=== PATIENT | female | born 1985 | race Caucasian/White ===

== ENCOUNTER 2016-07-02 10:15 | Emergency (ER) | payer OTHER, SELFPAY ==
[2016-07-02] MEDS ORDERED: KETOROLAC 30 MG/ML VIAL (J1885) As Ordered ONE (11:34)
[2016-07-02] MEDS ORDERED: ONDANSETRON 4MG/2ML VIAL (J2405) As Ordered ONE (11:34)
[2016-07-02 11:48] LABS: BASO % 0.5 % (0.0-1.0); EOS # 0.3 K/mm3 (0.0-0.50); EOS % 4.2 % (0.0-3.0); LARGE UNSTAINED CELL # 0.1 K/mm3 (0.0-0.4); LARGE UNSTAINED CELL % 1.7 % (0.0-4.0); LYMPH # 2.2 K/mm3 (1.5-6.5); MEAN CORPUSCULAR HEMOGLOBIN 29.7 pg (27.0-33.0); MEAN CORPUSCULAR HGB CONC 34.4 g/dl (32.0-36.5); MEAN CORPUSCULAR VOLUME 86.5 fl (80.0-96.0); MONO # 0.3 K/mm3 (0.0-0.8); MONO % 3.7 % (0.0-5.0); NEUTROPHILS # 4.6 K/mm3 (1.8-7.7); NEUTROPHILS % 60.9 % (36.0-66.0); PLATELET COUNT, AUTOMATED 227 k/mm3 (150-450); RED CELL DISTRIBUTION WIDTH 12.5 % (11.5-14.5); WHITE BLOOD COUNT 7.5 K/mm3 (4.0-10.0)
--- NOTE | 2016-07-02 12:36 | REP ---
Clinical: Left flank pain. Comparison: 03/03/2016. Findings: Liver, spleen, pancreas, gallbladder, bilateral adrenal glands and kidneys are normal for noncontrast examination. No perinephric stranding, hydroureteronephrosis, intrarenal or obstructing ureteral calculi are identified. The enteric system is without obstruction or acute inflammatory process and a normal terminal ileum and appendix are identified in the right lower quadrant. Pelvis demonstrates collapsed normal bladder and age-appropriate uterus/adnexa. No pelvic fluid or ascites. No obvious adenopathy. Vasculature normal. Musculoskeletal structures are unremarkable. Lung bases clear. Impression: Normal noncontrast CT of the abdomen and pelvis. Signed by Aneesh Loving MD 07/02/2016 12:27 P
[2016-07-02 13:09] LABS: ALBUMIN 3.5 GM/DL (3.2-5.2); ALBUMIN/GLOBULIN RATIO 0.92 (1.00-1.93); ALKALINE PHOSPHATASE 103 U/L (45-117); ALT/SGPT 38 U/L (12-78); ANION GAP 6 MEQ/L (8-16); AST/SGOT 22 U/L (15-37); BILIRUBIN,DIRECT 0.2 MG/DL (0.0-0.2); BILIRUBIN,TOTAL 0.9 MG/DL (0.2-1.0); BLOOD UREA NITROGEN 7 MG/DL (7-18); CALCIUM LEVEL 8.9 MG/DL (8.5-10.1); CARBON DIOXIDE LEVEL 29 MEQ/L (21-32); CHLORIDE LEVEL 104 MEQ/L (98-107); CREATININE FOR GFR 0.52 MG/DL (0.55-1.02); GLOMERULAR FILTRATION RATE > 60.0 (>60); GLUCOSE, FASTING 72 MG/DL (70-105); SODIUM LEVEL 139 MEQ/L (136-145); TOTAL PROTEIN 7.3 GM/DL (6.4-8.2)
[2016-07-02] MEDS ORDERED: NITROFURANTOIN (MACROBID) 100 MG CAP As Ordered ONE (13:45)
--- NOTE | 2016-07-02 13:52 | EDDOCDS ---
Nurse's Notes [facility] Name: Lisa Xiao Age: 30 yrs Sex: Female : 1985 Arrival Date: 07/02/2016 Time: 10:15 Bed I4 / M4 Private MD: Janet Zhao D Diagnosis: Urinary tract infection, site not specified;Nausea with vomiting, unspecified;Lower abdominal pain, unspecified-llq Presentation: 07/02 10:25 Presenting complaint: Patient states: she has had back pain for 2 days and since last kcs night has had left flank pain - vomited today. Adult Sepsis Screening: The patient does not have new or worsening altered mentation. Patient's respiratory rate is less than 22. Systolic blood pressure is greater than 100. Patient has a qSOFA score of 0- Negative Sepsis Screen. Suicide/Homicide risk assessment- the patient denies having any suicidal and/or homicidal ideations and does not present with any other emotional, behavioral or mental health complaints. Status: Patient is not a volunteer services manager or dependent. Transition of care: patient was not received from another setting of care. 10:25 Acuity: LIVIER Level 3 kcs 10:25 Method Of Arrival: Walkin/Carried/Asstd kcs Triage Assessment: 10:27 General: Appears obese, uncomfortable, well developed, well nourished, well groomed, kcs Behavior is cooperative, flat. Pain: Location: left flank Pain currently is 8 out of 10 on a pain scale. HIV screening NA for this visit Offered previously. Neurological: Level of Consciousness is awake, alert. Respiratory: Airway is patent Respiratory effort is even, unlabored, Respiratory pattern is regular, symmetrical. : Denies inability to void, hematuria. Derm: Skin is intact, is healthy with good turgor, Skin is dry, Skin is normal. 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 Zoloft 100 mg Oral tab 2 tabs once daily 2. omeprazole 40 mg Oral cpDR 1 cap once daily 3. trazodone 50 mg Oral tab HS - PMHx: Anxiety; Depression; GERD; Hypothyroidism; Migraine Headaches; - PSHx: none; - Social history: Smoking status: Patient uses tobacco products, light tobacco smoker. No barriers to communication noted, The patient speaks fluent Ethiopian. - Family history: Not pertinent. - : The pt / caregiver states he / she is not on anticoagulants. Home medication list is obtained from the patient, [employer] import data. - Exposure Risk Screening:: None identified. Screenin:42 Screening information is obtained from the patient. Fall risk: No risks identified. kr3 Assistance ADL's: requires no assistance with activities of daily living. Abuse/DV Screen: The patient / caregiver reports he/she is: not in a situation that causes fear, pain or injury. Nutritional screening: No deficits noted. Advance Directives: Currently, there is no health care proxy. home support is adequate. Assessment: 11:41 General: Appears in no apparent distress. Pain: Location: posterior aspect of left kr3 lateral abdomen and left lower quadrant Pain currently is 8 out of 10 on a pain scale. Neurological: No deficits noted. Respiratory: Respiratory effort is even, unlabored. GI: Abdomen is obese, Abd is tender to palpation in left lower quadrant Reports lower abdominal pain, nausea. : Denies burning with urination, urinary frequency, urgency. Derm: Skin is normal. 12:24 Reassessment: Patient states feeling better. pain and nausea are decreased. kr3 13:50 Reassessment: Patient appears in no apparent distress at this time. Neurological: No kr3 deficits noted. Respiratory: Respiratory effort is even, unlabored. Derm: Skin is normal. Vital Signs: 10:17 BP 100 / 87; Pulse 84; Resp 18; Temp 98.2(O); Pulse Ox 98% ; Weight 120.66 kg (M); cmb Height 5 ft. 2 in. (157.48 cm); Pain 8/10; 12:24 Pain 5/10; kr3 13:16 BP 123 / 81; Pulse 66; Resp 18; Temp 97.1; Pulse Ox 98% ; Pain 5/10; jam1 10:17 Body Mass Index 48.65 (120.66 kg, 157.48 cm) cmb Vitals: 10:17 Log In Time: July 02, 2016 at 10:14. cmb ED Course: 10:16 Patient visited by Harleen Young. cmb 10:16 Patient moved to Waiting cmb 10:17 Janet Zhao is Private Physician. cmb 10:18 Patient moved to Pre RCE cmb 10:26 Triage Initiated kcs 10:29 Patient moved to Triage 2 kcs 11:11 [facility] dt4 11:11 Juan Carlos Beth MD is Attending Physician. dt4 11:11 Patient visited by Mojgan James PA-C. dt4 11:28 Patient moved to I4 / M4 jam1 11:41 Basic Metabolic Profile Sent. dsf 11:41 CBC with Diff Sent. dsf 11:41 Lipase Sent. dsf 11:41 Liver Profile Sent. dsf 11:41 Urinalysis Sent. dsf 11:42 The patient / caregiver is instructed regarding the plan of care and ED course. Patient kr3 has correct armband on for positive identification. Placed in gown. Bed in low position. Call light in reach. Side rails up X 1. 11:42 Urine Culture Sent. dsf 11:42 Inserted saline lock: 22 gauge in right hand The patient tolerated the procedure well. kr3 11:44 Patient visited by Laurie Meyers RN. kr3 12:09 [facility] Payment Agreement was scanned into [employer] and attached to record. lg 12:24 Patient visited by Laurie Meyers RN. kr3 13:02 CT ABD & PELVIS: No Contrast Returned. EDMS 13:42 Fredy Palomino is Referral Physician. dt4 13:49 Discontinued lock intact, bleeding controlled, pressure dressing applied, No kr3 redness/swelling at site. No procedures done that require assistance. Administered Medications: 11:42 Drug: Ondansetron 4 mg [ondansetron HCl 2 mg/mL intravenous solution (2 mL)] Route: dsf IVP; Site: left hand; 12:24 Follow up: Response: Nausea is decreased kr3 11:42 Drug: ketorolac 30 mg [ketorolac 30 mg/mL (1 mL) injection solution (1 mL)] Route: IVP; dsf Site: left hand; 12:24 Follow up: Pain 5/10 Adult; Response: Pain is decreased kr3 13:49 Drug: Nitrofurantoin 100 mg Route: PO; kr3 13:51 Follow up: Response: Pt left department before re-evaluation is appropriate kr3 Order Results: Lab Order: Basic Metabolic Profile; SPEC'M 07/02/16 12:38 Test: GLUCOSE, FASTING; Value: 72; Range: 70-105; Units: MG/DL; Status: F Test: BLOOD UREA NITROGEN; Value: 7; Range: 7-18; Units: MG/DL; Status: F Test: CREATININE FOR GFR; Value: 0.52; Range: 0.55-1.02; Abnormal: Below low normal; Units: MG/DL; Status: F Test: GLOMERULAR FILTRATION RATE; Value: > 60.0; Range: >60; Status: F Test: SODIUM LEVEL; Value: 139; Range: 136-145; Units: MEQ/L; Status: F Test: POTASSIUM SERUM; Value: 4.0; Range: 3.5-5.1; Units: MEQ/L; Status: F Test: CHLORIDE LEVEL; Value: 104; Range: 98-107; Units: MEQ/L; Status: F Test: CARBON DIOXIDE LEVEL; Value: 29; Range: 21-32; Units: MEQ/L; Status: F Test: ANION GAP; Value: 6; Range: 8-16; Abnormal: Below low normal; Units: MEQ/L; Status: F Test: CALCIUM LEVEL; Value: 8.9; Range: 8.5-10.1; Units: MG/DL; Status: F Test Note: ; Units are mL/min/1.73 m2 Chronic Kidney Disease Staging per NKF: Stage I & II GFR >=60 Normal to Mildly Decreased Stage III GFR 30-59 Moderately Decreased Stage IV GFR 15-29 Severely Decreased Stage V GFR <15 Very Little GFR Left ESRD GFR <15 on [place] SMOOTHER Lab Order: CBC with Diff; SPEC'M 07/02/16 11:39 Test: WHITE BLOOD COUNT; Value: 7.5; Range: 4.0-10.0; Units: K/mm3; Status: F Test: RED BLOOD COUNT; Value: 5.13; Range: 4.00-5.40; Units: M/mm3; Status: F Test: HEMOGLOBIN; Value: 15.3; Range: 12.0-16.0; Units: g/dl; Status: F Test: HEMATOCRIT; Value: 44.4; Range: 36.0-47.0; Units: %; Status: F Test: MEAN CORPUSCULAR VOLUME; Value: 86.5; Range: 80.0-96.0; Units: fl; Status: F Test: MEAN CORPUSCULAR HEMOGLOBIN; Value: 29.7; Range: 27.0-33.0; Units: pg; Status: F Test: MEAN CORPUSCULAR HGB CONC; Value: 34.4; Range: 32.0-36.5; Units: g/dl; Status: F Test: RED CELL DISTRIBUTION WIDTH; Value: 12.5; Range: 11.5-14.5; Units: %; Status: F Test: PLATELET COUNT, AUTOMATED; Value: 227; Range: 150-450; Units: k/mm3; Status: F Test: NEUTROPHILS %; Value: 60.9; Range: 36.0-66.0; Units: %; Status: F Test: LYMPH %; Value: 29.0; Range: 24.0-44.0; Units: %; Status: F Test: MONO %; Value: 3.7; Range: 0.0-5.0; Units: %; Status: F Test: EOS %; Value: 4.2; Range: 0.0-3.0; Abnormal: Above high normal; Units: %; Status: F Test: BASO %; Value: 0.5; Range: 0.0-1.0; Units: %; Status: F Test: LARGE UNSTAINED CELL %; Value: 1.7; Range: 0.0-4.0; Units: %; Status: F Test: NEUTROPHILS #; Value: 4.6; Range: 1.8-7.7; Units: K/mm3; Status: F Test: LYMPH #; Value: 2.2; Range: 1.5-6.5; Units: K/mm3; Status: F Test: MONO #; Value: 0.3; Range: 0.0-0.8; Units: K/mm3; Status: F Test: EOS #; Value: 0.3; Range: 0.0-0.50; Units: K/mm3; Status: F Test: BASO #; Value: 0.0; Range: 0.0-0.2; Units: K/mm3; Status: F Test: LARGE UNSTAINED CELL #; Value: 0.1; Range: 0.0-0.4; Units: K/mm3; Status: F Lab Order: Lipase; SPEC'M 07/02/16 12:38 Test: LIPASE; Value: 93; Range: 73-393; Units: U/L; Status: F Lab Order: Liver Profile; SPEC'M 07/02/16 12:38 Test: AST/SGOT; Value: 22; Range: 15-37; Units: U/L; Status: F Test: ALT/SGPT; Value: 38; Range: 12-78; Units: U/L; Status: F Test: ALKALINE PHOSPHATASE; Value: 103; Range: 45-117; Units: U/L; Status: F Test: BILIRUBIN,TOTAL; Value: 0.9; Range: 0.2-1.0; Units: MG/DL; Status: F Test: BILIRUBIN,DIRECT; Value: 0.2; Range: 0.0-0.2; Units: MG/DL; Status: F Test: TOTAL PROTEIN; Value: 7.3; Range: 6.4-8.2; Units: GM/DL; Status: F Test: ALBUMIN; Value: 3.5; Range: 3.2-5.2; Units: GM/DL; Status: F Test: ALBUMIN/GLOBULIN RATIO; Value: 0.92; Range: 1.00-1.93; Abnormal: Below low normal; Status: F Lab Order: Urinalysis; SPEC'M 07/02/16 11:39 Test: APPEARANCE, URINE; Value: CLOUDY; Range: CLEAR; Abnormal: Above high normal; Status: F Test: COLOR, URINE; Value: ROSITA; Range: YELLOW; Status: F Test: PH,URINE; Value: 7.0; Range: 5.0-9.0; Units: UNITS; Status: F Test: SPECIFIC GRAVITY URINE AUTO; Value: 1.026; Range: 1.002-1.035; Status: F Test: PROTEIN, URINE AUTO; Value: 1+; Range: NEGATIVE; Abnormal: Above high normal; Units: mg/dL; Status: F Test: GLUCOSE, URINE (UA) AUTO; Value: NEGATIVE; Range: NEGATIVE; Units: mg/dL; Status: F Test: KETONE, URINE AUTO; Value: NEGATIVE; Range: NEGATIVE; Units: mg/dL; Status: F Test: UROBILINOGEN, URINE AUTO; Value: 2.0; Range: 0.0-2.0; Abnormal: Above high normal; Units: mg/dL; Status: F Test: BILIRUBIN, URINE AUTO; Value: NEGATIVE; Range: NEGATIVE; Status: F Test: NITRITE, URINE AUTO; Value: NEGATIVE; Range: NEGATIVE; Status: F Test: LEUKOCYTE ESTERASE, URINE AUTO; Value: 2+; Range: NEGATIVE; Abnormal: Above high normal; Status: F Test: BLOOD, URINE BLOOD; Value: 2+; Range: NEGATIVE; Abnormal: Above high normal; Status: F Test: WBC, URINE AUTO; Value: 9; Range: 0-3; Abnormal: Above high normal; Units: /HPF; Status: F Test: RBC, URINE AUTO; Value: 7; Range: 0-3; Abnormal: Above high normal; Units: /HPF; Status: F Test: BACTERIA, URINE AUTO; Value: 2+; Range: NEGATIVE; Abnormal: Above high normal; Status: F Test: SQUAMOUS EPITHELIAL CELL UR AU; Value: 7; Range: 0-6; Units: /HPF; Status: F Test: MUCUS, URINE; Value: LARGE; Range: NEGATIVE; Status: F Test: HYALINE CAST, URINE AUTO; Value: 0; Range: 0-1; Units: /LPF; Status: F Radiology Order: CT ABD & PELVIS: No Contrast Test: CT ABD & PELVIS: No Contrast REASON FOR EXAMINATION: left flank pain; Clinical: Left flank pain.; ; Comparison: 03/03/2016.; ; Findings:; Liver, spleen, pancreas, gallbladder, bilateral adrenal glands and kidneys are; normal for noncontrast examination. No perinephric stranding,; hydroureteronephrosis, intrarenal or obstructing ureteral calculi are identified.; The enteric system is without obstruction or acute inflammatory process and a; normal terminal ileum and appendix are identified in the right lower quadrant.; Pelvis demonstrates collapsed normal bladder and age-appropriate uterus/adnexa.; No pelvic fluid or ascites. No obvious adenopathy. Vasculature normal.; Musculoskeletal structures are unremarkable. Lung bases clear.; ; Impression:; Normal noncontrast CT of the abdomen and pelvis.; ; ; Signed by; Aneesh Loving MD 07/02/2016 12:27 P; Outcome: 12:25 CT Study completed. kr3 13:38 Discharge ordered by Provider. dt4 13:50 Discharge Assessment: patient administered narcotics - no. The following High Risk kr3 Discharge criteria are identified: None. Discharged to home ambulatory. Condition: stable. Discharge instructions given to patient, Instructed on discharge instructions, follow up and referral plans. medication usage, Demonstrated understanding of instructions, medications, Pt was receptive of discharge instructions/ teaching. Prescriptions given X 3. Property sent home with patient. 13:51 Patient left the ED. kr3 Signatures: Dispatcher [employer] EDMS Roslyn Lopes, RN RN Natty Campbell, COGNOS ADMINISTRATOR COGNOS ADMINISTRATOR jam1 Kathya Ramirez, Reg Reg lg Laurie Meyers RN RN kr3 Charla Martinez,RN RN Harleen Zheng Diane, PA-C PA-C dt4 MTDD
--- NOTE | 2016-07-02 13:52 | EDDOCDS ---
Physician Documentation [facility] Name: Lisa Xiao Age: 30 yrs Sex: Female : 1985 Arrival Date: 07/02/2016 Time: 10:15 Bed I4 / M4 Private MD: Janet Zhao D Disposition: 07/02/16 13:38 Discharged to Home/Self Care. Impression: Urinary tract infection, site not specified, Nausea with vomiting, unspecified, Lower abdominal pain, unspecified - llq. - Condition is Stable. - Discharge Instructions: Nausea and Vomiting, Urinary Tract Infection. - Prescriptions for Macrobid 100 mg Oral Capsule - take 100 milligrams by ORAL route every 12 hours for 7 days; 14 capsule. ZOFRAN ODT 4 mg Oral - dissolve 1 tablet by ORAL route 3-4 times daily As needed do not chew, do not swallow whole; 10 tablet. Ultram 50 mg Oral Tablet - take 1 tablet by ORAL route every 6 hours As needed MDD: 4 tabs; 12 tablet. - Medication Reconciliation, Local Pharmacy Hours form. - Follow up: Emergency Department; When: As needed; Reason: Worsening of conditions. Follow up: Private Physician; When: 2 - 3 days; Reason: Wound/Symptom Recheck, Recheck today's complaints, Continuance of care. Follow up: Fredy Palomino; When: Call to arrange an appointment; Reason: Wound/Symptom Recheck, Further diagnostic work-up, Recheck today's complaints, Continuance of care, To establish care. - Problem is new. - Symptoms are unchanged. Historical: - Allergies: SULFA (SULFONAMIDES) (Anaphylaxis); - Home Meds: 1. Zoloft 100 mg Oral tab 2 tabs once daily 2. omeprazole 40 mg Oral cpDR 1 cap once daily 3. trazodone 50 mg Oral tab HS - PMHx: Anxiety; Depression; GERD; Hypothyroidism; Migraine Headaches; - PSHx: none; - Social history: Smoking status: Patient uses tobacco products, light tobacco smoker. No barriers to communication noted, The patient speaks fluent Faroese. - Family history: Not pertinent. - : The pt / caregiver states he / she is not on anticoagulants. Home medication list is obtained from the patient, IND [employer] import data. - Exposure Risk Screening:: None identified. 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 2 in. (157.48 cm); Pain 8/10; 12:24 Pain 5/10; kr3 13:16 BP 123 / 81; Pulse 66; Resp 18; Temp 97.1; Pulse Ox 98% ; Pain 5/10; jam1 10:17 Body Mass Index 48.65 (120.66 kg, 157.48 cm) cmb MDM: 11:15 Financial registration complete. lg 11:28 Ondansetron 4 mg IVP once ordered. dt4 11:28 ketorolac 30 mg IVP once ordered. dt4 11:28 IV Saline Lock ordered. dt4 11:28 Undress patient appropriately for examination ordered. dt4 11:29 Basic Metabolic Profile Ordered. EDMS 11:29 CBC with Diff Ordered. EDMS 11:29 Lipase Ordered. EDMS 11:29 Liver Profile Ordered. EDMS 11:29 Urinalysis Ordered. EDMS 11:29 Urine Culture Ordered. EDMS 11:29 CT ABD & PELVIS: No Contrast Ordered. EDMS 11:29 NOTHING BY MOUTH+DIET ordered. EDMS 12:09 [facility] Payment Agreement was scanned into [employer] and attached to record. lg 13:35 Nitrofurantoin 100 mg PO once ordered. dt4 Administered Medications: 11:42 Drug: Ondansetron 4 mg [ondansetron HCl 2 mg/mL intravenous solution (2 mL)] Route: dsf IVP; Site: left hand; 12:24 Follow up: Response: Nausea is decreased kr3 11:42 Drug: ketorolac 30 mg [ketorolac 30 mg/mL (1 mL) injection solution (1 mL)] Route: IVP; dsf Site: left hand; 12:24 Follow up: Pain 5/10 Adult; Response: Pain is decreased kr3 13:49 Drug: Nitrofurantoin 100 mg Route: PO; kr3 13:51 Follow up: Response: Pt left department before re-evaluation is appropriate kr3 Signatures: Dispatcher [employer] EDMS Roslyn Lopes RN RN kcs Ganter, LorCarl Perry lg, Kathleen,RN RN kr3 Mojgan James PA-C PA-C dt4 Charla Martinez RNf The chart was reviewed and I authenticate all verbal orders and agree with the evaluation and treatment provided.Attachments: 12: [facility] Payment Agreement lg MTDD
--- NOTE | 2016-07-04 14:52 | EDDOCDS ---
Physician Documentation [facility] Name: Lisa Xiao Age: 30 yrs Sex: Female : 1985 Arrival Date: 07/02/2016 Time: 10:15 Bed I4 / M4 Private MD: Janet Zhao D Disposition: 07/02/16 13:38 Discharged to Home/Self Care. Impression: Urinary tract infection, site not specified, Nausea with vomiting, unspecified, Lower abdominal pain, unspecified - llq. - Condition is Stable. - Discharge Instructions: Nausea and Vomiting, Urinary Tract Infection. - Prescriptions for Macrobid 100 mg Oral Capsule - take 100 milligrams by ORAL route every 12 hours for 7 days; 14 capsule. ZOFRAN ODT 4 mg Oral - dissolve 1 tablet by ORAL route 3-4 times daily As needed do not chew, do not swallow whole; 10 tablet. Ultram 50 mg Oral Tablet - take 1 tablet by ORAL route every 6 hours As needed MDD: 4 tabs; 12 tablet. - Medication Reconciliation, Local Pharmacy Hours form. - Follow up: Emergency Department; When: As needed; Reason: Worsening of conditions. Follow up: Private Physician; When: 2 - 3 days; Reason: Wound/Symptom Recheck, Recheck today's complaints, Continuance of care. Follow up: Fredy Palomino; When: Call to arrange an appointment; Reason: Wound/Symptom Recheck, Further diagnostic work-up, Recheck today's complaints, Continuance of care, To establish care. - Problem is new. - Symptoms are unchanged. Historical: - Allergies: SULFA (SULFONAMIDES) (Anaphylaxis); - Home Meds: 1. Zoloft 100 mg Oral tab 2 tabs once daily 2. omeprazole 40 mg Oral cpDR 1 cap once daily 3. trazodone 50 mg Oral tab HS - PMHx: Anxiety; Depression; GERD; Hypothyroidism; Migraine Headaches; - PSHx: none; - Social history: Smoking status: Patient uses tobacco products, light tobacco smoker. No barriers to communication noted, The patient speaks fluent Zambian. - Family history: Not pertinent. - : The pt / caregiver states he / she is not on anticoagulants. Home medication list is obtained from the patient, [employer] import data. - Exposure Risk Screening:: None identified. 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 2 in. (157.48 cm); Pain 8/10; 12:24 Pain 5/10; kr3 13:16 BP 123 / 81; Pulse 66; Resp 18; Temp 97.1; Pulse Ox 98% ; Pain 5/10; jam1 10:17 Body Mass Index 48.65 (120.66 kg, 157.48 cm) cmb MDM: 11:15 Financial registration complete. lg 11:28 Ondansetron 4 mg IVP once ordered. dt4 11:28 ketorolac 30 mg IVP once ordered. dt4 11:28 IV Saline Lock ordered. dt4 11:28 Undress patient appropriately for examination ordered. dt4 11:29 Basic Metabolic Profile Ordered. EDMS 11:29 CBC with Diff Ordered. EDMS 11:29 Lipase Ordered. EDMS 11:29 Liver Profile Ordered. EDMS 11:29 Urinalysis Ordered. EDMS 11:29 Urine Culture Ordered. EDMS 11:29 CT ABD & PELVIS: No Contrast Ordered. EDMS 11:29 NOTHING BY MOUTH+DIET ordered. EDMS 12:09 [facility] Payment Agreement was scanned into [employer] and attached to record. lg 13:35 Nitrofurantoin 100 mg PO once ordered. dt4 07/03 11:50 T-Sheet-- Draft Copy was scanned into [employer] and attached to record. gb Administered Medications: 07/02 11:42 Drug: Ondansetron 4 mg [ondansetron HCl 2 mg/mL intravenous solution (2 mL)] Route: dsf IVP; Site: left hand; 12:24 Follow up: Response: Nausea is decreased kr3 11:42 Drug: ketorolac 30 mg [ketorolac 30 mg/mL (1 mL) injection solution (1 mL)] Route: IVP; dsf Site: left hand; 12:24 Follow up: Pain 5/10 Adult; Response: Pain is decreased kr3 13:49 Drug: Nitrofurantoin 100 mg Route: PO; kr3 13:51 Follow up: Response: Pt left department before re-evaluation is appropriate kr3 Signatures: Dispatcher [employer] Roslyn Heredia, RN RN kcs Giana Thurston, Reg Reg gb Kathya Ramirez, Reg Reg lg Laurie Meyers RN RN kr3 Mojgan James, PAHaroldo PAHaroldo dt4 Charla Martinez RN dsf The chart was reviewed and I authenticate all verbal orders and agree with the evaluation and treatment provided.Attachments: 12:09 [facility] Payment Agreement lg 07/03 11:50 T-Sheet-- Draft Copy gb Chart Complete MTDD
--- NOTE | 2016-07-04 14:52 | EDDOCDS ---
Physician Documentation [facility] Name: Lisa Xiao Age: 30 yrs Sex: Female : 1985 Arrival Date: 07/02/2016 Time: 10:15 Bed I4 / M4 Private MD: Janet Zhao D Disposition: 07/02/16 13:38 Discharged to Home/Self Care. Impression: Urinary tract infection, site not specified, Nausea with vomiting, unspecified, Lower abdominal pain, unspecified - llq. - Condition is Stable. - Discharge Instructions: Nausea and Vomiting, Urinary Tract Infection. - Prescriptions for Macrobid 100 mg Oral Capsule - take 100 milligrams by ORAL route every 12 hours for 7 days; 14 capsule. ZOFRAN ODT 4 mg Oral - dissolve 1 tablet by ORAL route 3-4 times daily As needed do not chew, do not swallow whole; 10 tablet. Ultram 50 mg Oral Tablet - take 1 tablet by ORAL route every 6 hours As needed MDD: 4 tabs; 12 tablet. - Medication Reconciliation, Local Pharmacy Hours form. - Follow up: Emergency Department; When: As needed; Reason: Worsening of conditions. Follow up: Private Physician; When: 2 - 3 days; Reason: Wound/Symptom Recheck, Recheck today's complaints, Continuance of care. Follow up: Fredy Palomino; When: Call to arrange an appointment; Reason: Wound/Symptom Recheck, Further diagnostic work-up, Recheck today's complaints, Continuance of care, To establish care. - Problem is new. - Symptoms are unchanged. Historical: - Allergies: SULFA (SULFONAMIDES) (Anaphylaxis); - Home Meds: 1. Zoloft 100 mg Oral tab 2 tabs once daily 2. omeprazole 40 mg Oral cpDR 1 cap once daily 3. trazodone 50 mg Oral tab HS - PMHx: Anxiety; Depression; GERD; Hypothyroidism; Migraine Headaches; - PSHx: none; - Social history: Smoking status: Patient uses tobacco products, light tobacco smoker. No barriers to communication noted, The patient speaks fluent Cypriot. - Family history: Not pertinent. - : The pt / caregiver states he / she is not on anticoagulants. Home medication list is obtained from the patient, [employer] import data. - Exposure Risk Screening:: None identified. LAN SPECIALIST: 07/02 10:27 LMP 2016 kcs Vital Signs: 10:17 BP 100 / 87; Pulse 84; Resp 18; Temp 98.2(O); Pulse Ox 98% ; Weight 120.66 kg / 266.01 cmb lbs (M); Height 5 ft. 2 in. (157.48 cm); Pain 8/10; 12:24 Pain 5/10; kr3 13:16 BP 123 / 81; Pulse 66; Resp 18; Temp 97.1; Pulse Ox 98% ; Pain 5/10; jam1 10:17 Body Mass Index 48.65 (120.66 kg, 157.48 cm) cmb MDM: 11:15 Financial registration complete. lg 11:28 Ondansetron 4 mg IVP once ordered. dt4 11:28 ketorolac 30 mg IVP once ordered. dt4 11:28 IV Saline Lock ordered. dt4 11:28 Undress patient appropriately for examination ordered. dt4 11:29 Basic Metabolic Profile Ordered. EDMS 11:29 CBC with Diff Ordered. EDMS 11:29 Lipase Ordered. EDMS 11:29 Liver Profile Ordered. EDMS 11:29 Urinalysis Ordered. EDMS 11:29 Urine Culture Ordered. EDMS 11:29 CT ABD & PELVIS: No Contrast Ordered. EDMS 11:29 NOTHING BY MOUTH+DIET ordered. EDMS 12:09 [facility] Payment Agreement was scanned into [employer] and attached to record. lg 13:35 Nitrofurantoin 100 mg PO once ordered. dt4 07/03 11:50 T-Sheet-- Draft Copy was scanned into [employer] and attached to record. gb Administered Medications: 07/02 11:42 Drug: Ondansetron 4 mg [ondansetron HCl 2 mg/mL intravenous solution (2 mL)] Route: dsf IVP; Site: left hand; 12:24 Follow up: Response: Nausea is decreased kr3 11:42 Drug: ketorolac 30 mg [ketorolac 30 mg/mL (1 mL) injection solution (1 mL)] Route: IVP; dsf Site: left hand; 12:24 Follow up: Pain 5/10 Adult; Response: Pain is decreased kr3 13:49 Drug: Nitrofurantoin 100 mg Route: PO; kr3 13:51 Follow up: Response: Pt left department before re-evaluation is appropriate kr3 Signatures: Dispatcher [employer] Roslyn Heredia, RN RN kcs Giana Thurston, Reg Reg gb Kathya Ramirez, Reg Reg lg Laurie Meyers RN RN kr3 Mojgan James, PAHaroldo PAHaroldo dt4 Charla Martinez RN dsf The chart was reviewed and I authenticate all verbal orders and agree with the evaluation and treatment provided.Attachments: 12:09 [facility] Payment Agreement lg 07/03 11:50 T-Sheet-- Draft Copy gb Chart Complete MTDD
--- NOTE | 2016-07-04 14:52 | EDDOCDS ---
Nurse's Notes [facility] Name: Lisa Xiao Age: 30 yrs Sex: Female : 1985 Arrival Date: 07/02/2016 Time: 10:15 Bed I4 / M4 Private MD: Janet Zhao D Diagnosis: Urinary tract infection, site not specified;Nausea with vomiting, unspecified;Lower abdominal pain, unspecified-llq Presentation: 07/02 10:25 Presenting complaint: Patient states: she has had back pain for 2 days and since last kcs night has had left flank pain - vomited today. Adult Sepsis Screening: The patient does not have new or worsening altered mentation. Patient's respiratory rate is less than 22. Systolic blood pressure is greater than 100. Patient has a qSOFA score of 0- Negative Sepsis Screen. Suicide/Homicide risk assessment- the patient denies having any suicidal and/or homicidal ideations and does not present with any other emotional, behavioral or mental health complaints. Status: Patient is not a financial service representative or dependent. Transition of care: patient was not received from another setting of care. 10:25 Acuity: LIVIER Level 3 kcs 10:25 Method Of Arrival: Walkin/Carried/Asstd kcs Triage Assessment: 10:27 General: Appears obese, uncomfortable, well developed, well nourished, well groomed, kcs Behavior is cooperative, flat. Pain: Location: left flank Pain currently is 8 out of 10 on a pain scale. HIV screening NA for this visit Offered previously. Neurological: Level of Consciousness is awake, alert. Respiratory: Airway is patent Respiratory effort is even, unlabored, Respiratory pattern is regular, symmetrical. : Denies inability to void, hematuria. Derm: Skin is intact, is healthy with good turgor, Skin is dry, Skin is normal. GAME MODERATOR: 10:27 LMP 2016 kcs Historical: - Allergies: SULFA (SULFONAMIDES) (Anaphylaxis); - Home Meds: 1. Zoloft 100 mg Oral tab 2 tabs once daily 2. omeprazole 40 mg Oral cpDR 1 cap once daily 3. trazodone 50 mg Oral tab HS - PMHx: Anxiety; Depression; GERD; Hypothyroidism; Migraine Headaches; - PSHx: none; - Social history: Smoking status: Patient uses tobacco products, light tobacco smoker. No barriers to communication noted, The patient speaks fluent [place]inean. - Family history: Not pertinent. - : The pt / caregiver states he / she is not on anticoagulants. Home medication list is obtained from the patient, [employer] import data. - Exposure Risk Screening:: None identified. Screenin:42 Screening information is obtained from the patient. Fall risk: No risks identified. kr3 Assistance ADL's: requires no assistance with activities of daily living. Abuse/DV Screen: The patient / caregiver reports he/she is: not in a situation that causes fear, pain or injury. Nutritional screening: No deficits noted. Advance Directives: Currently, there is no health care proxy. home support is adequate. Assessment: 11:41 General: Appears in no apparent distress. Pain: Location: posterior aspect of left kr3 lateral abdomen and left lower quadrant Pain currently is 8 out of 10 on a pain scale. Neurological: No deficits noted. Respiratory: Respiratory effort is even, unlabored. GI: Abdomen is obese, Abd is tender to palpation in left lower quadrant Reports lower abdominal pain, nausea. : Denies burning with urination, urinary frequency, urgency. Derm: Skin is normal. 12:24 Reassessment: Patient states feeling better. pain and nausea are decreased. kr3 13:50 Reassessment: Patient appears in no apparent distress at this time. Neurological: No kr3 deficits noted. Respiratory: Respiratory effort is even, unlabored. Derm: Skin is normal. Vital Signs: 10:17 BP 100 / 87; Pulse 84; Resp 18; Temp 98.2(O); Pulse Ox 98% ; Weight 120.66 kg (M); cmb Height 5 ft. 2 in. (157.48 cm); Pain 8/10; 12:24 Pain 5/10; kr3 13:16 BP 123 / 81; Pulse 66; Resp 18; Temp 97.1; Pulse Ox 98% ; Pain 5/10; jam1 10:17 Body Mass Index 48.65 (120.66 kg, 157.48 cm) cmb Vitals: 10:17 Log In Time: July 02, 2016 at 10:14. cmb ED Course: 10:16 Patient visited by Harleen Young. cmb 10:16 Patient moved to Waiting cmb 10:17 Janet Zhao is Private Physician. cmb 10:18 Patient moved to Pre RCE cmb 10:26 Triage Initiated kcs 10:29 Patient moved to Triage 2 kcs 11:11 [facility]. dt4 11:11 Juan Carlos Beth MD is Attending Physician. dt4 11:11 Patient visited by Mojgan James PA-C. dt4 11:28 Patient moved to I4 / M4 jam1 11:41 Basic Metabolic Profile Sent. dsf 11:41 CBC with Diff Sent. dsf 11:41 Lipase Sent. dsf 11:41 Liver Profile Sent. dsf 11:41 Urinalysis Sent. dsf 11:42 The patient / caregiver is instructed regarding the plan of care and ED course. Patient kr3 has correct armband on for positive identification. Placed in gown. Bed in low position. Call light in reach. Side rails up X 1. 11:42 Urine Culture Sent. dsf 11:42 Inserted saline lock: 22 gauge in right hand The patient tolerated the procedure well. kr3 11:44 Patient visited by Laurie Meyers RN. kr3 12:09 [facility] Payment Agreement was scanned into [employer] and attached to record. lg 12:24 Patient visited by Laurie Meyers RN. kr3 13:02 CT ABD & PELVIS: No Contrast Returned. EDMS 13:42 Fredy Palomino is Referral Physician. dt4 13:49 Discontinued lock intact, bleeding controlled, pressure dressing applied, No kr3 redness/swelling at site. No procedures done that require assistance. 07/03 11:50 T-Sheet-- Draft Copy was scanned into [employer] and attached to record. gb Administered Medications: 07/02 11:42 Drug: Ondansetron 4 mg [ondansetron HCl 2 mg/mL intravenous solution (2 mL)] Route: dsf IVP; Site: left hand; 12:24 Follow up: Response: Nausea is decreased kr3 11:42 Drug: ketorolac 30 mg [ketorolac 30 mg/mL (1 mL) injection solution (1 mL)] Route: IVP; dsf Site: left hand; 12:24 Follow up: Pain 5/10 Adult; Response: Pain is decreased kr3 13:49 Drug: Nitrofurantoin 100 mg Route: PO; kr3 13:51 Follow up: Response: Pt left department before re-evaluation is appropriate kr3 Order Results: Lab Order: Basic Metabolic Profile; SPEC'M 07/02/16 12:38 Test: GLUCOSE, FASTING; Value: 72; Range: 70-105; Units: MG/DL; Status: F Test: BLOOD UREA NITROGEN; Value: 7; Range: 7-18; Units: MG/DL; Status: F Test: CREATININE FOR GFR; Value: 0.52; Range: 0.55-1.02; Abnormal: Below low normal; Units: MG/DL; Status: F Test: GLOMERULAR FILTRATION RATE; Value: > 60.0; Range: >60; Status: F Test: SODIUM LEVEL; Value: 139; Range: 136-145; Units: MEQ/L; Status: F Test: POTASSIUM SERUM; Value: 4.0; Range: 3.5-5.1; Units: MEQ/L; Status: F Test: CHLORIDE LEVEL; Value: 104; Range: 98-107; Units: MEQ/L; Status: F Test: CARBON DIOXIDE LEVEL; Value: 29; Range: 21-32; Units: MEQ/L; Status: F Test: ANION GAP; Value: 6; Range: 8-16; Abnormal: Below low normal; Units: MEQ/L; Status: F Test: CALCIUM LEVEL; Value: 8.9; Range: 8.5-10.1; Units: MG/DL; Status: F Test Note: ; Units are mL/min/1.73 m2 Chronic Kidney Disease Staging per NKF: Stage I & II GFR >=60 Normal to Mildly Decreased Stage III GFR 30-59 Moderately Decreased Stage IV GFR 15-29 Severely Decreased Stage V GFR <15 Very Little GFR Left ESRD GFR <15 on CARD ROOM MANAGER Lab Order: CBC with Diff; SPEC'M 07/02/16 11:39 Test: WHITE BLOOD COUNT; Value: 7.5; Range: 4.0-10.0; Units: K/mm3; Status: F Test: RED BLOOD COUNT; Value: 5.13; Range: 4.00-5.40; Units: M/mm3; Status: F Test: HEMOGLOBIN; Value: 15.3; Range: 12.0-16.0; Units: g/dl; Status: F Test: HEMATOCRIT; Value: 44.4; Range: 36.0-47.0; Units: %; Status: F Test: MEAN CORPUSCULAR VOLUME; Value: 86.5; Range: 80.0-96.0; Units: fl; Status: F Test: MEAN CORPUSCULAR HEMOGLOBIN; Value: 29.7; Range: 27.0-33.0; Units: pg; Status: F Test: MEAN CORPUSCULAR HGB CONC; Value: 34.4; Range: 32.0-36.5; Units: g/dl; Status: F Test: RED CELL DISTRIBUTION WIDTH; Value: 12.5; Range: 11.5-14.5; Units: %; Status: F Test: PLATELET COUNT, AUTOMATED; Value: 227; Range: 150-450; Units: k/mm3; Status: F Test: NEUTROPHILS %; Value: 60.9; Range: 36.0-66.0; Units: %; Status: F Test: LYMPH %; Value: 29.0; Range: 24.0-44.0; Units: %; Status: F Test: MONO %; Value: 3.7; Range: 0.0-5.0; Units: %; Status: F Test: EOS %; Value: 4.2; Range: 0.0-3.0; Abnormal: Above high normal; Units: %; Status: F Test: BASO %; Value: 0.5; Range: 0.0-1.0; Units: %; Status: F Test: LARGE UNSTAINED CELL %; Value: 1.7; Range: 0.0-4.0; Units: %; Status: F Test: NEUTROPHILS #; Value: 4.6; Range: 1.8-7.7; Units: K/mm3; Status: F Test: LYMPH #; Value: 2.2; Range: 1.5-6.5; Units: K/mm3; Status: F Test: MONO #; Value: 0.3; Range: 0.0-0.8; Units: K/mm3; Status: F Test: EOS #; Value: 0.3; Range: 0.0-0.50; Units: K/mm3; Status: F Test: BASO #; Value: 0.0; Range: 0.0-0.2; Units: K/mm3; Status: F Test: LARGE UNSTAINED CELL #; Value: 0.1; Range: 0.0-0.4; Units: K/mm3; Status: F Lab Order: Lipase; SPEC'M 07/02/16 12:38 Test: LIPASE; Value: 93; Range: 73-393; Units: U/L; Status: F Lab Order: Liver Profile; SPEC'M 07/02/16 12:38 Test: AST/SGOT; Value: 22; Range: 15-37; Units: U/L; Status: F Test: ALT/SGPT; Value: 38; Range: 12-78; Units: U/L; Status: F Test: ALKALINE PHOSPHATASE; Value: 103; Range: 45-117; Units: U/L; Status: F Test: BILIRUBIN,TOTAL; Value: 0.9; Range: 0.2-1.0; Units: MG/DL; Status: F Test: BILIRUBIN,DIRECT; Value: 0.2; Range: 0.0-0.2; Units: MG/DL; Status: F Test: TOTAL PROTEIN; Value: 7.3; Range: 6.4-8.2; Units: GM/DL; Status: F Test: ALBUMIN; Value: 3.5; Range: 3.2-5.2; Units: GM/DL; Status: F Test: ALBUMIN/GLOBULIN RATIO; Value: 0.92; Range: 1.00-1.93; Abnormal: Below low normal; Status: F Lab Order: Urinalysis; SPEC'M 07/02/16 11:39 Test: APPEARANCE, URINE; Value: CLOUDY; Range: CLEAR; Abnormal: Above high normal; Status: F Test: COLOR, URINE; Value: ROSITA; Range: YELLOW; Status: F Test: PH,URINE; Value: 7.0; Range: 5.0-9.0; Units: UNITS; Status: F Test: SPECIFIC GRAVITY URINE AUTO; Value: 1.026; Range: 1.002-1.035; Status: F Test: PROTEIN, URINE AUTO; Value: 1+; Range: NEGATIVE; Abnormal: Above high normal; Units: mg/dL; Status: F Test: GLUCOSE, URINE (UA) AUTO; Value: NEGATIVE; Range: NEGATIVE; Units: mg/dL; Status: F Test: KETONE, URINE AUTO; Value: NEGATIVE; Range: NEGATIVE; Units: mg/dL; Status: F Test: UROBILINOGEN, URINE AUTO; Value: 2.0; Range: 0.0-2.0; Abnormal: Above high normal; Units: mg/dL; Status: F Test: BILIRUBIN, URINE AUTO; Value: NEGATIVE; Range: NEGATIVE; Status: F Test: NITRITE, URINE AUTO; Value: NEGATIVE; Range: NEGATIVE; Status: F Test: LEUKOCYTE ESTERASE, URINE AUTO; Value: 2+; Range: NEGATIVE; Abnormal: Above high normal; Status: F Test: BLOOD, URINE BLOOD; Value: 2+; Range: NEGATIVE; Abnormal: Above high normal; Status: F Test: WBC, URINE AUTO; Value: 9; Range: 0-3; Abnormal: Above high normal; Units: /HPF; Status: F Test: RBC, URINE AUTO; Value: 7; Range: 0-3; Abnormal: Above high normal; Units: /HPF; Status: F Test: BACTERIA, URINE AUTO; Value: 2+; Range: NEGATIVE; Abnormal: Above high normal; Status: F Test: SQUAMOUS EPITHELIAL CELL UR AU; Value: 7; Range: 0-6; Units: /HPF; Status: F Test: MUCUS, URINE; Value: LARGE; Range: NEGATIVE; Status: F Test: HYALINE CAST, URINE AUTO; Value: 0; Range: 0-1; Units: /LPF; Status: F Lab Order: Urine Culture; SPEC'M 07/02/16 11:39 Test: URINE CULTURE; Value: URINE CULTURE RESULT NO GROWTH CLINICAL SIGNIFICANCE 1 ORGANISM; Status: F Radiology Order: CT ABD & PELVIS: No Contrast Test: CT ABD & PELVIS: No Contrast REASON FOR EXAMINATION: left flank pain; Clinical: Left flank pain.; ; Comparison: 03/03/2016.; ; Findings:; Liver, spleen, pancreas, gallbladder, bilateral adrenal glands and kidneys are; normal for noncontrast examination. No perinephric stranding,; hydroureteronephrosis, intrarenal or obstructing ureteral calculi are identified.; The enteric system is without obstruction or acute inflammatory process and a; normal terminal ileum and appendix are identified in the right lower quadrant.; Pelvis demonstrates collapsed normal bladder and age-appropriate uterus/adnexa.; No pelvic fluid or ascites. No obvious adenopathy. Vasculature normal.; Musculoskeletal structures are unremarkable. Lung bases clear.; ; Impression:; Normal noncontrast CT of the abdomen and pelvis.; ; ; Signed by; Aneesh Loving MD 07/02/2016 12:27 P; Outcome: 12:25 CT Study completed. kr3 13:38 Discharge ordered by Provider. dt4 13:50 Discharge Assessment: patient administered narcotics - no. The following High Risk kr3 Discharge criteria are identified: None. Discharged to home ambulatory. Condition: stable. Discharge instructions given to patient, Instructed on discharge instructions, follow up and referral plans. medication usage, Demonstrated understanding of instructions, medications, Pt was receptive of discharge instructions/ teaching. Prescriptions given X 3. Property sent home with patient. 13:51 Patient left the ED. kr3 Signatures: Dispatcher [employer] EDMS Roslyn Lopes, RN RN Natty Campbell, COMMERCIAL LINES ACCOUNT ASSISTANT COMMERCIAL LINES ACCOUNT ASSISTANT jam1 Giana Thurston, Reg Reg gb Kathya Ramirez, Reg Reg lg Laurie Meyers RN RN kr3 Charla Martinez RN RN Harleen Zheng Diane, PA-C PA-C dt4 Chart Complete [facility]
== END 2016-07-02 13:51 | disposition home or self-care (01) ==
LOC: M ED 10:15
DX: N39.0 Urinary tract infection, site not specified (principal); R10.32 Left lower quadrant pain; R11.2 Nausea with vomiting, unspecified; F41.9 Anxiety disorder, unspecified; F32.9 Major depressive disorder, single episode, unspecified; E03.9 Hypothyroidism, unspecified; G43.909 Migraine, unspecified, not intractable, without status migrainosus; Z88.2 Allergy status to sulfonamides; E66.9 Obesity, unspecified; Z68.42 Body mass index [BMI] 45.0-49.9, adult; F17.200 Nicotine dependence, unspecified, uncomplicated
CPT/HCPCS: 36415; 74176; 80048; 80076; 81001; 83690; 85025; 87086; 96374; 96375; 99284; J1885; J2405

== ENCOUNTER 2017-01-18 17:51 | Emergency (ER) | payer OTHER, SELFPAY ==
[~2017-01-18] VITALS: Ht 157.5 cm; Wt 116.5 kg
[2017-01-18] MEDS ORDERED: PHENAZOPYRIDINE 100 MG TAB PO ONE (19:30)
[2017-01-18] MEDS ORDERED: CIPROFLOXACIN 500 MG TAB PO ONE (19:30)
[2017-01-18] MEDS ORDERED: ACETAMINOPHEN 325 MG TAB PO ONE (19:30)
[2017-01-18] MEDS ORDERED: CIPR-249 PO (20:03)
[2017-01-18] MEDS ORDERED: PYRI1TAB5 PO (20:04)
[2017-01-18 20:09] VITALS: BP 117/81
== END 2017-01-18 20:14 | disposition home or self-care (01) ==
LOC: M ED 17:51
DX: N30.01 Acute cystitis with hematuria (principal); F32.9 Major depressive disorder, single episode, unspecified; F17.200 Nicotine dependence, unspecified, uncomplicated; Z88.2 Allergy status to sulfonamides; Z88.1 Allergy status to other antibiotic agents

== ENCOUNTER 2017-06-15 03:23 | Emergency (ER) | payer SELFPAY ==
[2017-06-15 07:01] LABS: MEAN CORPUSCULAR HEMOGLOBIN 29.4 pg (27.0-33.0); MEAN CORPUSCULAR VOLUME 86.5 fl (80.0-96.0); PLATELET COUNT, AUTOMATED 233 10^3/uL (150-450); RED CELL DISTRIBUTION WIDTH 13.2 % (11.5-14.5); WHITE BLOOD COUNT 7.2 10^3/uL (4.0-10.0)
[2017-06-15 07:12] LABS: METHADONE URINE NEGATIVE (NEGATIVE)
[2017-06-15 07:17] LABS: CONTROL LINE HCG INT CTR LINE PRESENT
[2017-06-15 07:32] LABS: ALBUMIN 3.7 GM/DL (3.2-5.2); ALBUMIN/GLOBULIN RATIO 0.93 (1.00-1.93); ALKALINE PHOSPHATASE 90 U/L (45-117); ALT/SGPT 39 U/L (12-78); ANION GAP 7 MEQ/L (8-16); AST/SGOT 23 U/L (7-37); BILIRUBIN,DIRECT 0.2 MG/DL (0.0-0.2); BILIRUBIN,TOTAL 0.6 MG/DL (0.2-1.0); BLOOD UREA NITROGEN 9 MG/DL (7-18); CALCIUM LEVEL 8.4 MG/DL (8.5-10.1); CARBON DIOXIDE LEVEL 27 MEQ/L (21-32); CHLORIDE LEVEL 109 MEQ/L (98-107); CREATININE FOR GFR 0.48 MG/DL (0.55-1.02); GLOMERULAR FILTRATION RATE > 60.0 (>60); GLUCOSE, FASTING 95 MG/DL (70-105); POTASSIUM SERUM 4.3 MEQ/L (3.5-5.1); SODIUM LEVEL 143 MEQ/L (136-145); TOTAL PROTEIN 7.7 GM/DL (6.4-8.2)
== END 2017-06-15 12:56 | disposition home or self-care (01) ==
LOC: M ED 03:23
DX: R45.851 Suicidal ideations (principal); F32.9 Major depressive disorder, single episode, unspecified; F17.200 Nicotine dependence, unspecified, uncomplicated
CPT/HCPCS: G0480

== ENCOUNTER 2018-05-05 21:56 | Emergency (ER) | payer OTHER, SELFPAY ==
[2018-05-05] MEDS: ONDANSETRON 4MG/2ML VIAL (J2405) IV (23:00)
[2018-05-05] MEDS: NS 1,000 ML IV (23:00)
[2018-05-05] MEDS ORDERED: ISOVUE-370 76% 100ML VIAL (Q9967) As Ordered (23:34)
[2018-05-05 23:45] LABS: BASO % 0.5 % (0.0-1.0); EOS # 0.4 10^3/uL (0.0-0.50); EOS % 4.5 % (0.0-3.0); HEMATOCRIT 43.6 % (36.0-47.0); HEMOGLOBIN 14.8 g/dl (12.0-15.5); IMMATURE GRANULOCYTE % 0.2 % (0-3.0); LYMPH # 1.4 10^3/uL (1.5-4.5); LYMPH % 16.7 % (24.0-44.0); MEAN CORPUSCULAR HEMOGLOBIN 29.8 pg (27.0-33.0); MEAN CORPUSCULAR HGB CONC 33.9 g/dl (32.0-36.5); MEAN CORPUSCULAR VOLUME 87.7 fl (80.0-96.0); MONO # 0.5 10^3/uL (0.0-0.8); MONO % 5.9 % (0.0-5.0); NEUTROPHILS % 72.2 % (36.0-66.0); PLATELET COUNT, AUTOMATED 228 10^3/uL (150-450); RED BLOOD COUNT 4.97 10^6/uL (4.00-5.40); WHITE BLOOD COUNT 8.3 10^3/uL (4.0-10.0)
[2018-05-05] MEDS: MORPHINE 2 MG/ML 1ML SYRINGE (J2270) IV (23:51)
[2018-05-05 23:54] LABS: INR 0.97
[2018-05-05 23:55] LABS: PARTIAL THROMBOPLASTIN TIME 28.3 SECONDS (25.4-37.6)
[2018-05-06 00:05] LABS: CONTROL LINE HCG INT CTR LINE PRESENT; HCG, SERUM QUALITATIVE NEGATIVE (NEGATIVE)
[2018-05-06 00:14] LABS: ALBUMIN 3.6 GM/DL (3.2-5.2); ALKALINE PHOSPHATASE 89 U/L (45-117); ALT/SGPT 40 U/L (12-78); ANION GAP 10 MEQ/L (8-16); AST/SGOT 22 U/L (7-37); BILIRUBIN,DIRECT 0.3 MG/DL (0.0-0.2); BILIRUBIN,TOTAL 1.1 MG/DL (0.2-1.0); BLOOD UREA NITROGEN 10 MG/DL (7-18); CALCIUM LEVEL 8.6 MG/DL (8.5-10.1); CARBON DIOXIDE LEVEL 25 MEQ/L (21-32); CHLORIDE LEVEL 104 MEQ/L (98-107); CK-MB VALUE MASS < 1.0 NG/ML (<3.6); CPK CREATINE PHOSPHOKINASE 93 U/L (26-192); CREATININE FOR GFR 0.54 MG/DL (0.55-1.30); ETHYL ALCOHOL (ETHANOL) < 0.003 % (0.000-0.010); GLOMERULAR FILTRATION RATE > 60.0 (>60); GLUCOSE, FASTING 110 MG/DL (70-100); LIPASE 119 U/L (73-393); MB/CK RELATIVE INDEX 1.08 (< OR =4); POTASSIUM SERUM 3.4 MEQ/L (3.5-5.1); SODIUM LEVEL 139 MEQ/L (136-145); TOTAL PROTEIN 8.1 GM/DL (6.4-8.2); TROPONIN I < 0.02 NG/ML (< 0.10)
[2018-05-06 00:25] LABS: KETONE, URINE AUTO RFX TRACE mg/dL (NEGATIVE); MUCUS, URINE RFX SMALL (NEGATIVE); NITRITE, URINE AUTO RFX NEGATIVE (NEGATIVE); RBC, URINE AUTO RFX 5 /HPF (0-3); SPECIFIC GRAVITY UR AUTO RFX 1.018 (1.002-1.035); SQUAM EPITHELIAL CELL UR AURFX 6 /HPF (0-6); WBC, URINE AUTO RFX 1 /HPF (0-3)
[2018-05-06 00:35] LABS: AMPHETAMINES LEVEL URINE NEGATIVE (NEGATIVE); BARBITURATES URINE NEGATIVE (NEGATIVE); BENZODIAZEPINES URINE NEGATIVE (NEGATIVE); CANNABINOIDS URINE NEGATIVE (NEGATIVE); COCAINE METABOLITE URINE NEGATIVE (NEGATIVE); METHADONE URINE NEGATIVE (NEGATIVE); OPIATES URINE NEGATIVE (NEGATIVE); PHENCYCLIDINE URINE NEGATIVE (NEGATIVE)
[2018-05-06 00:44] LABS: LEUKOCYTE ESTERASE UR AUTO RFX 1+ (NEGATIVE)
== END 2018-05-06 03:05 | disposition home or self-care (01) ==
LOC: M ED 05-06 03:05
DX: M54.2 Cervicalgia (principal); R07.9 Chest pain, unspecified; M25.512 Pain in left shoulder; M25.552 Pain in left hip; V43.52XA Car driver injured in collision with other type car in traffic accident, initial encounter; Y92.410 Unspecified street and highway as the place of occurrence of the external cause; Y93.9 Activity, unspecified; Y99.9 Unspecified external cause status; K21.9 Gastro-esophageal reflux disease without esophagitis; F32.9 Major depressive disorder, single episode, unspecified; E03.9 Hypothyroidism, unspecified; E28.2 Polycystic ovarian syndrome; Z72.0 Tobacco use; Z88.2 Allergy status to sulfonamides; Z88.1 Allergy status to other antibiotic agents
CPT/HCPCS: J2405

== ENCOUNTER → 2018-07-08 | Outpatient (REF) | payer OTHER ==
[~2018-07-08] MED LIST: CIPR-249 PO; PYRI1TAB5 PO
== END ==
LOC: M LAB REF 12:13
PROVIDERS: ATTEND Physician Assistant Medical
DX: J02.0 Streptococcal pharyngitis (principal)

== ENCOUNTER 2018-09-23 13:50 | Emergency (ER) | payer OTHER ==
[~2018-09-23] VITALS: Ht 160 cm; Wt 119.4 kg
[2018-09-23] MEDS ORDERED: MECLIZINE 25 MG TABLET PO ONE (14:45)
[2018-09-23] MEDS ORDERED: KETOROLAC 30 MG/ML VIAL (J1885) IV ONE (14:45)
[2018-09-23] MEDS ORDERED: METOCLOPRAMIDE INJ 10MG/2ML VIAL (J2765) IV ONE (14:45)
[2018-09-23 15:44] LABS: BASO # 0.1 10^3/uL (0.0-0.2); EOS # 0.4 10^3/uL (0.0-0.50); HEMATOCRIT 45.8 % (36.0-47.0); HEMOGLOBIN 15.4 g/dl (12.0-15.5); MEAN CORPUSCULAR HEMOGLOBIN 29.2 pg (27.0-33.0); MEAN CORPUSCULAR HGB CONC 33.6 g/dl (32.0-36.5); MEAN CORPUSCULAR VOLUME 86.7 fl (80.0-96.0); MONO # 0.5 10^3/uL (0.0-0.8); MONO % 7.2 % (0.0-5.0); NEUTROPHILS # 4.3 10^3/uL (1.8-7.7); NEUTROPHILS % 59.7 % (36.0-66.0); PLATELET COUNT, AUTOMATED 274 10^3/uL (150-450); RED BLOOD COUNT 5.28 10^6/uL (4.00-5.40); WHITE BLOOD COUNT 7.3 10^3/uL (4.0-10.0)
[2018-09-23 16:00] LABS: BLOOD UREA NITROGEN 10 MG/DL (7-18); CALCIUM LEVEL 9.6 MG/DL (8.5-10.1); CARBON DIOXIDE LEVEL 27 MEQ/L (21-32); CHLORIDE LEVEL 104 MEQ/L (98-107); CREATININE FOR GFR 0.63 MG/DL (0.55-1.30); GLOMERULAR FILTRATION RATE > 60.0 (>60); GLUCOSE, FASTING 104 MG/DL (70-100); POTASSIUM SERUM 4.1 MEQ/L (3.5-5.1); SODIUM LEVEL 138 MEQ/L (136-145)
--- NOTE | 2018-09-23 17:02 | REP ---
Clinical: Right flank pain. Technique: Axial noncontrast images from the lung bases to the pubic symphysis with coronal and sagittal re-formations. Findings: Liver, spleen, pancreas, gallbladder, bilateral adrenal glands and kidneys are normal. Specifically, no hydroureteronephrosis, perinephric stranding, intrarenal or obstructing ureteral calculi are identified. The bilateral ureters are normal. The bladder is collapsed. Evaluation of the enteric system is without obstruction or acute inflammatory process. Normal terminal ileum, cecum and appendix identified in the right lower quadrant. Evaluation of the pelvis demonstrates collapsed bladder and age-appropriate uterus/adnexa. No pelvic fluid. No ascites. No free air. No adenopathy. Abdominal aorta without aneurysm. Musculoskeletal structures are intact. Lung bases are clear. Impression: 1. No acute abdominopelvic pathology appreciated. 2. No ascites, focal inflammatory stranding, or adenopathy. Electronically Signed by Aneesh Loving MD 09/23/2018 04:53 P
[2018-09-23] MEDS ORDERED: KETO10TAB PO (17:20)
[2018-09-23] MEDS ORDERED: FLON1SPR NARES (17:20)
[2018-09-23 17:29] VITALS: BP 142/85
== END 2018-09-23 17:34 | disposition home or self-care (01) ==
LOC: M ED 13:50
DX: M54.5 Low back pain (principal); H65.90 Unspecified nonsuppurative otitis media, unspecified ear; F17.210 Nicotine dependence, cigarettes, uncomplicated; Z88.1 Allergy status to other antibiotic agents; Z88.2 Allergy status to sulfonamides
CPT/HCPCS: 74176; 80048; 81001; 81025; 85025; 96374; 96375; 99284; J1885; J2765

== ENCOUNTER → 2018-10-19 | Outpatient (REF) | payer OTHER ==
[~2018-10-19] MED LIST changes: +FLON1SPR NARES; +KETO10TAB PO
== END ==
LOC: M SFHCLERA 12:59
PROVIDERS: ATTEND Nurse Practitioner Family
DX: R07.0 Pain in throat (principal)

== ENCOUNTER → 2019-03-31 | Outpatient (REF) | payer OTHER | LOC: M SFHCLERA 11:04 | PROVIDERS: ATTEND Physician Assistant | DX: R30.0 Dysuria (principal) | CPT/HCPCS: 81002; 81025; 87186; G0463 ==

== ENCOUNTER → 2019-11-17 | Outpatient (CLI) | payer OTHER ==
[2019-11-17 15:59] LABS: FREE T4 0.9 NG/DL (0.76-1.46)
== END ==
LOC: M PLALAB 12:05
PROVIDERS: ATTEND Nurse Practitioner Family
DX: E03.9 Hypothyroidism, unspecified (principal)

== ENCOUNTER 2020-05-31 06:38 | Emergency (ER) | payer OTHER, SELFPAY ==
[~2020-05-31] VITALS: Ht 160 cm; Wt 129.7 kg
[2020-05-31] MEDS ORDERED: METF10004 (06:50)
[2020-05-31] MEDS ORDERED: [UNRECOGNIZED DRUG - REMARK] (06:50)
[2020-05-31] MEDS ORDERED: OMEP-221 (06:50)
[2020-05-31] MEDS ORDERED: NS 1,000 ML IV ONE (07:15)
[2020-05-31] MEDS ORDERED: ONDANSETRON 4MG/2ML VIAL IV ONE (07:30)
[2020-05-31 07:50] LABS: BASO # 0.1 10^3/uL (0.0-0.2); EOS # 0.3 10^3/uL (0.0-0.5); EOS % 4.3 % (0.0-3.0); HEMATOCRIT 42.7 % (36.0-47.0); HEMOGLOBIN 13.7 g/dl (12.0-15.5); LYMPH # 1.1 10^3/uL (1.5-5.0); LYMPH % 18.5 % (24.0-44.0); MEAN CORPUSCULAR HEMOGLOBIN 28.1 pg (27.0-33.0); MEAN CORPUSCULAR HGB CONC 32.1 g/dl (32.0-36.5); MEAN CORPUSCULAR VOLUME 87.7 fl (80.0-96.0); MONO # 0.3 10^3/uL (0.0-0.8); MONO % 4.9 % (0.0-5.0); NEUTROPHILS # 4.3 10^3/uL (1.5-8.5); PLATELET COUNT, AUTOMATED 266 10^3/uL (150-450); RED BLOOD COUNT 4.87 10^6/uL (4.00-5.40); WHITE BLOOD COUNT 6.1 10^3/uL (4.0-10.0)
[2020-05-31 09:10] LABS: HCG, SERUM QUALITATIVE NEGATIVE (NEGATIVE)
[2020-05-31 09:30] LABS: ALBUMIN 3.7 GM/DL (3.2-5.2); ALT/SGPT 94 U/L (12-78); BILIRUBIN,DIRECT 0.4 MG/DL (0.0-0.2); BILIRUBIN,TOTAL 1.3 MG/DL (0.2-1.0); BLOOD UREA NITROGEN 10 MG/DL (7-18); CARBON DIOXIDE LEVEL 27 MEQ/L (21-32); CHLORIDE LEVEL 104 MEQ/L (98-107); CREATININE FOR GFR 0.71 MG/DL (0.55-1.30); GLOMERULAR FILTRATION RATE > 60.0 (>60); GLUCOSE, FASTING 165 MG/DL (70-100); LIPASE 77 U/L (73-393); SODIUM LEVEL 138 MEQ/L (136-145); TOTAL PROTEIN 8.1 GM/DL (6.4-8.2)
[2020-05-31] MEDS ORDERED: KETOROLAC 30 MG/ML 1ML VIAL IV ONE (09:30)
[2020-05-31] MEDS ORDERED: KETOROLAC 30 MG/ML 1ML VIAL IM ONE (10:00)
--- NOTE | 2020-05-31 10:41 | REP ---
INDICATION: right abd pain/flank pain, hematuria COMPARISON: Comparison CT studies are reviewed from September 23, 2018 and July 02, 2016.. TECHNIQUE: Helical scanning is acquired in 4 mm axial images were reformatted. Coronal and sagittal MPR images were generated and reviewed. FINDINGS: Preliminary digital mottler machine feeder radiograph is unremarkable. Normal bowel gas pattern. The lung bases are clear on axial CT images. There is moderate degree of diffuse fatty infiltration of the liver with small areas of fat sparing in the parenchyma adjacent to the gallbladder. No focal liver lesion is seen. The liver is felt to be mildly enlarged with midclavicular line vertical span of 17.7 cm. The spleen is homogeneous in texture. It too is mildly enlarged with a greatest diameter of 13.9 cm. Normal adrenal glands are seen. Pancreas is unremarkable. No abnormality is noted within the gallbladder. No retroperitoneal mass or adenopathy is seen. The kidneys appear morphologically intact. No hydronephrosis, calculus, or mass is seen. A normal appendix is noted in the right lower quadrant. No uterine or ovarian abnormality is seen. Scattered normal sized pelvic lymph nodes are noted a little less prominent than on the prior study. No definite adenopathy. Urinary bladder is intact. There is mild left colonic diverticulosis. No CT evidence of diverticulitis. No abdominal wall defect is seen. No bony destructive lesion is observed. IMPRESSION: Fairly advanced fatty infiltration of the liver, mild hepatosplenomegaly. Fatty liver changes are somewhat more pronounced although not new when compared with the prior study. No urinary tract calculus seen. No hydronephrosis noted. <Electronically signed by Ermias Galdamez > 05/31/20 [id number]
[2020-05-31] MEDS ORDERED: cefTRIAXone SOD 1 GM in D5W MINI-BAG PLUS 50 ML IV ONE (12:00)
[2020-05-31] MEDS ORDERED: CEFD1CAP8 PO (12:16)
[2020-05-31 12:26] VITALS: BP 140/85
== END 2020-05-31 12:41 | disposition home or self-care (01) ==
LOC: M ED 06:38
DX: N39.0 Urinary tract infection, site not specified (principal); R31.9 Hematuria, unspecified; K76.0 Fatty (change of) liver, not elsewhere classified; Z88.1 Allergy status to other antibiotic agents; Z88.2 Allergy status to sulfonamides
CPT/HCPCS: 74176; 80048; 80076; 81001; 83690; 84703; 85025; 96361; 96372; 96374; 99284; J1885; J2405

== ENCOUNTER → 2020-08-16 | Outpatient (CLI) | payer OTHER ==
[~2020-08-16] MED LIST changes: +CEFD1CAP8 PO; +METF10004; +OMEP-221; +[UNRECOGNIZED DRUG - REMARK]
[2020-08-16 12:38] LABS: ALBUMIN 3.8 GM/DL (3.2-5.2); ALT/SGPT 90 U/L (12-78); BILIRUBIN,TOTAL 0.9 MG/DL (0.2-1.0); BLOOD UREA NITROGEN 10 MG/DL (7-18); CARBON DIOXIDE LEVEL 30 MEQ/L (21-32); CHLORIDE LEVEL 102 MEQ/L (98-107); CHOLESTEROL LEVEL 139 MG/DL (<200); CREATININE FOR GFR 0.61 MG/DL (0.55-1.30); FREE T4 0.85 NG/DL (0.76-1.46); GLOMERULAR FILTRATION RATE > 60.0 (>60); GLUCOSE, FASTING 171 MG/DL (70-100); HDL CHOLESTEROL 41 MG/DL (>40); LDL CHOLESTEROL 82 MG/DL (<100); NON-HDL-C 98 MG/DL; SODIUM LEVEL 136 MEQ/L (136-145); TOTAL PROTEIN 8.4 GM/DL (6.4-8.2); TRIGLYCERIDES LEVEL 79 MG/DL (<150)
[2020-08-16 12:45] LABS: MALB URINE SIEMENS 49.4 MG/L; MAU/CREAT RATIO 32.5 MCG/MG (0.0-30.0)
== END ==
LOC: M PLALAB 08:38
PROVIDERS: ATTEND Nurse Practitioner Family
DX: E03.9 Hypothyroidism, unspecified (principal); E11.65 Type 2 diabetes mellitus with hyperglycemia

== ENCOUNTER → 2021-05-02 | Outpatient (CLI) | payer OTHER ==
[2021-05-02 14:16] LABS: FREE T4 1.24 NG/DL (0.76-1.46); THYROID STIMULATING HORMONE 11.8 uIU/ML (0.358-3.740)
== END ==
LOC: M PLALAB 11:11
PROVIDERS: ATTEND Internal Medicine Endocrinology, Diabetes & Metabolism
DX: E03.9 Hypothyroidism, unspecified (principal)

== ENCOUNTER 2021-10-02 13:45 | Outpatient (RCR) | payer OTHER ==
[~2021-10-02 13:45] MED LIST changes: -CEFD1CAP8 PO; +CEFD300C41 PO; -OMEP-221; +OMEP40CA5
== END 2021-10-18 ==
LOC: M PT 13:45
PROVIDERS: ATTEND Internal Medicine Hematology & Oncology
DX: Z85.41 Personal history of malignant neoplasm of cervix uteri (principal); C79.9 Secondary malignant neoplasm of unspecified site; G89.3 Neoplasm related pain (acute) (chronic)

== ENCOUNTER → 2021-11-03 | Outpatient (CLI) | payer OTHER ==
[2021-11-03 14:49] LABS: BASO # 0.1 10^3/uL (0.0-0.2); BASO % 0.8 % (0.0-1.0); EOS # 0.1 10^3/uL (0.0-0.5); EOS % 0.6 % (0.0-3.0); HEMATOCRIT 33.8 % (36.0-47.0); LYMPH # 0.7 10^3/uL (1.5-5.0); LYMPH % 7.1 % (24.0-44.0); MEAN CORPUSCULAR HEMOGLOBIN 30.5 pg (27.0-33.0); MEAN CORPUSCULAR HGB CONC 32.5 g/dl (32.0-36.5); MEAN CORPUSCULAR VOLUME 93.6 fl (80.0-96.0); MONO # 0.1 10^3/uL (0.0-0.8); MONO % 0.7 % (2.0-8.0); NEUTROPHILS # 7.1 10^3/uL (1.5-8.5); NEUTROPHILS % 73.9 % (36.0-66.0); PLATELET COUNT, AUTOMATED 121 10^3/uL (150-450); RED BLOOD COUNT 3.61 10^6/uL (4.00-5.40); WHITE BLOOD COUNT 9.6 10^3/uL (4.0-10.0)
[2021-11-03 14:54] LABS: ALBUMIN 3.8 GM/DL (3.2-5.2); ALT/SGPT 29 U/L (12-78); BILIRUBIN,TOTAL 1.1 MG/DL (0.2-1.0); BLOOD UREA NITROGEN 14 MG/DL (7-18); CALCIUM LEVEL 9.5 MG/DL (8.5-10.1); CARBON DIOXIDE LEVEL 28 MEQ/L (21-32); CHLORIDE LEVEL 102 MEQ/L (98-107); CREATININE FOR GFR 0.61 MG/DL (0.55-1.30); FERRITIN 292 NG/ML (8-252); GLOMERULAR FILTRATION RATE > 60.0 (>60); GLUCOSE, FASTING 94 MG/DL (70-100); IRON (FE) 176 UG/DL (50-170); MAGNESIUM LEVEL 1.6 MG/DL (1.8-2.4); PERCENT SATURATION 79.6 % (13.2-45.0); PHOSPHORUS LEVEL 3.5 MG/DL (2.5-4.9); POTASSIUM SERUM 3.9 MEQ/L (3.5-5.1); SODIUM LEVEL 137 MEQ/L (136-145); TOTAL IRON BINDING CAPACITY 221 UG/DL (250-450); TOTAL PROTEIN 7.9 GM/DL (6.4-8.2)
[2021-11-03 15:26] LABS: CA 125 6.1 U/ML (<30.2)
== END ==
LOC: M LAB 13:33
PROVIDERS: ATTEND Internal Medicine Hematology & Oncology
DX: C53.9 Malignant neoplasm of cervix uteri, unspecified (principal); C79.9 Secondary malignant neoplasm of unspecified site; G89.3 Neoplasm related pain (acute) (chronic); Z85.41 Personal history of malignant neoplasm of cervix uteri

== ENCOUNTER → 2021-11-07 | Outpatient (REF) | payer OTHER ==
[2021-11-07 17:18] LABS: APPEARANCE, URINE CLEAR (CLEAR); BACTERIA, URINE AUTO NEGATIVE (NEGATIVE); BILIRUBIN, URINE AUTO NEGATIVE (NEGATIVE); BLOOD, URINE BLOOD NEGATIVE (NEGATIVE); COLOR, URINE YELLOW (YELLOW); GLUCOSE, URINE (UA) AUTO NEGATIVE (NEGATIVE); KETONE, URINE AUTO NEGATIVE (NEGATIVE); LEUKOCYTE ESTERASE, URINE AUTO NEGATIVE (NEGATIVE); MUCUS, URINE SMALL (NEGATIVE); NITRITE, URINE AUTO NEGATIVE (NEGATIVE); PROTEIN, URINE AUTO NEGATIVE (NEGATIVE); RBC, URINE AUTO 0 /HPF (0-3); SPECIFIC GRAVITY URINE AUTO 1.017 (1.002-1.035); SQUAMOUS EPITHELIAL CELL UR AU 1 /HPF (0-6); UROBILINOGEN, URINE AUTO 0.2 mg/dL (0.0-2.0); WBC, URINE AUTO 2 /HPF (0-3)
== END ==
LOC: M LAB REF 16:27
PROVIDERS: ATTEND Obstetrics & Gynecology
DX: N39.0 Urinary tract infection, site not specified (principal)

== ENCOUNTER → 2021-11-10 | Outpatient (CLI) | payer OTHER ==
[2021-11-10 11:31] LABS: BASO # 0.1 10^3/uL (0.0-0.2); BASO % 0.3 % (0.0-1.0); EOS # 0.3 10^3/uL (0.0-0.5); EOS % 1.4 % (0.0-3.0); HEMATOCRIT 33.9 % (36.0-47.0); HEMOGLOBIN 10.8 g/dl (12.0-15.5); LYMPH % 10.6 % (24.0-44.0); MEAN CORPUSCULAR HEMOGLOBIN 30.3 pg (27.0-33.0); MEAN CORPUSCULAR HGB CONC 31.9 g/dl (32.0-36.5); MEAN CORPUSCULAR VOLUME 95.2 fl (80.0-96.0); MONO # 1.1 10^3/uL (0.0-0.8); MONO % 5.7 % (2.0-8.0); NEUTROPHILS # 10.1 10^3/uL (1.5-8.5); NEUTROPHILS % 54.8 % (36.0-66.0); PLATELET COUNT, AUTOMATED 206 10^3/uL (150-450); RED BLOOD COUNT 3.56 10^6/uL (4.00-5.40); WHITE BLOOD COUNT 18.5 10^3/uL (4.0-10.0)
[2021-11-10 11:59] LABS: ALBUMIN 3.7 GM/DL (3.2-5.2); ALT/SGPT 19 U/L (12-78); BILIRUBIN,TOTAL 0.5 MG/DL (0.2-1.0); BLOOD UREA NITROGEN 14 MG/DL (7-18); CALCIUM LEVEL 9.1 MG/DL (8.5-10.1); CARBON DIOXIDE LEVEL 29 MEQ/L (21-32); CHLORIDE LEVEL 104 MEQ/L (98-107); CREATININE FOR GFR 0.71 MG/DL (0.55-1.30); GLOMERULAR FILTRATION RATE > 60.0 (>60); GLUCOSE, FASTING 90 MG/DL (70-100); MAGNESIUM LEVEL 1.5 MG/DL (1.8-2.4); PHOSPHORUS LEVEL 4.3 MG/DL (2.5-4.9); POTASSIUM SERUM 4.9 MEQ/L (3.5-5.1); SODIUM LEVEL 138 MEQ/L (136-145); TOTAL PROTEIN 7.9 GM/DL (6.4-8.2)
== END ==
LOC: M LAB 10:33
PROVIDERS: ATTEND Internal Medicine Hematology & Oncology
DX: C53.9 Malignant neoplasm of cervix uteri, unspecified (principal); C79.9 Secondary malignant neoplasm of unspecified site; G89.3 Neoplasm related pain (acute) (chronic); Z85.41 Personal history of malignant neoplasm of cervix uteri

== ENCOUNTER → 2021-11-18 | Outpatient (CLI) | payer OTHER ==
[2021-11-18 15:50] LABS: BASO # 0.1 10^3/uL (0.0-0.2); BASO % 1.5 % (0.0-1.0); EOS % 0.4 % (0.0-3.0); HEMATOCRIT 34.2 % (36.0-47.0); HEMOGLOBIN 10.9 g/dl (12.0-15.5); LYMPH # 1.3 10^3/uL (1.5-5.0); LYMPH % 26.3 % (24.0-44.0); MEAN CORPUSCULAR HEMOGLOBIN 30.3 pg (27.0-33.0); MEAN CORPUSCULAR HGB CONC 31.9 g/dl (32.0-36.5); MONO # 0.4 10^3/uL (0.0-0.8); NEUTROPHILS % 62.4 % (36.0-66.0); PLATELET COUNT, AUTOMATED 195 10^3/uL (150-450); WHITE BLOOD COUNT 4.8 10^3/uL (4.0-10.0)
[2021-11-18 16:23] LABS: ALBUMIN 3.6 GM/DL (3.2-5.2); ALT/SGPT 15 U/L (12-78); BILIRUBIN,TOTAL 0.6 MG/DL (0.2-1.0); BLOOD UREA NITROGEN 14 MG/DL (7-18); CALCIUM LEVEL 9.6 MG/DL (8.5-10.1); CARBON DIOXIDE LEVEL 30 MEQ/L (21-32); CHLORIDE LEVEL 105 MEQ/L (98-107); CREATININE FOR GFR 0.65 MG/DL (0.55-1.30); FERRITIN 134 NG/ML (8-252); GLOMERULAR FILTRATION RATE > 60.0 (>60); GLUCOSE, FASTING 100 MG/DL (70-100); IRON (FE) 42 UG/DL (50-170); MAGNESIUM LEVEL 1.7 MG/DL (1.8-2.4); PERCENT SATURATION 16.2 % (13.2-45.0); PHOSPHORUS LEVEL 3.6 MG/DL (2.5-4.9); POTASSIUM SERUM 4.6 MEQ/L (3.5-5.1); SODIUM LEVEL 138 MEQ/L (136-145); THYROID STIMULATING HORMONE 0.511 uIU/ML (0.358-3.740); TOTAL IRON BINDING CAPACITY 259 UG/DL (250-450); TOTAL PROTEIN 8.2 GM/DL (6.4-8.2)
[2021-11-18 17:07] LABS: CA 125 9.1 U/ML (<30.2)
== END ==
LOC: M LAB 15:00
PROVIDERS: ATTEND Internal Medicine Hematology & Oncology
DX: C53.9 Malignant neoplasm of cervix uteri, unspecified (principal)

== ENCOUNTER 2021-11-24 13:30 | Emergency (ER) | payer OTHER ==
[~2021-11-24] VITALS: Ht 160 cm; Wt 91.8 kg
[2021-11-24 17:21] LABS: HEMOGLOBIN 11.2 g/dl (12.0-15.5); MEAN CORPUSCULAR HEMOGLOBIN 30.5 pg (27.0-33.0); MEAN CORPUSCULAR HGB CONC 32.9 g/dl (32.0-36.5); MEAN CORPUSCULAR VOLUME 92.6 fl (80.0-96.0); PLATELET COUNT, AUTOMATED 171 10^3/uL (150-450); RED BLOOD COUNT 3.67 10^6/uL (4.00-5.40); WHITE BLOOD COUNT 5.4 10^3/uL (4.0-10.0)
[2021-11-24 17:43] LABS: ALBUMIN 3.8 GM/DL (3.2-5.2); ALT/SGPT 17 U/L (12-78); BILIRUBIN,DIRECT 0.2 MG/DL (0.0-0.2); BILIRUBIN,TOTAL 0.7 MG/DL (0.2-1.0); BLOOD UREA NITROGEN 18 MG/DL (7-18); CALCIUM LEVEL 10.1 MG/DL (8.5-10.1); CARBON DIOXIDE LEVEL 29 MEQ/L (21-32); CHLORIDE LEVEL 103 MEQ/L (98-107); CREATININE FOR GFR 0.65 MG/DL (0.55-1.30); GLOMERULAR FILTRATION RATE > 60.0 (>60); GLUCOSE, FASTING 78 MG/DL (70-100); LIPASE 84 U/L (73-393); POTASSIUM SERUM 4.3 MEQ/L (3.5-5.1); SODIUM LEVEL 138 MEQ/L (136-145); TOTAL PROTEIN 8.8 GM/DL (6.4-8.2)
[2021-11-24 17:48] LABS: ATYPICAL LYMPH 3 % (0-5); BASOPHILS 2 % (0-1); EOSINOPHILS 5 % (0-3); LYMPHOCYTES 54 % (16-44); MONOCYTES 7 % (0-5); NEUTROPHILS 29 % (28-66)
[2021-11-24 17:49] LABS: PLATELET ESTIMATE NORMAL (NORMAL)
[2021-11-24] MEDS ORDERED: MORPHINE 4 MG/ML 1ML VIAL/SYRINGE IV ONE (19:00)
[2021-11-24] MEDS ORDERED: NS 1,000 ML IV ONE (19:00)
[2021-11-24] MEDS ORDERED: ISOVUE-370 76% 100ML VIAL As Ordered ONE (19:07)
[2021-11-24 21:36] VITALS: BP 131/73
== END 2021-11-24 21:41 | disposition home or self-care (01) ==
LOC: M ED 13:30
DX: R10.31 Right lower quadrant pain (principal); R16.1 Splenomegaly, not elsewhere classified; C53.9 Malignant neoplasm of cervix uteri, unspecified; C79.9 Secondary malignant neoplasm of unspecified site; Z88.1 Allergy status to other antibiotic agents; Z88.2 Allergy status to sulfonamides
CPT/HCPCS: 74177; 80048; 80076; 81001; 83690; 84702; 85025; 96361; 96374; 99284; J2270; Q9967

== ENCOUNTER → 2021-11-26 | Outpatient (CLI) | payer OTHER ==
[2021-11-26 08:25] LABS: BASO % 0.9 % (0.0-1.0); EOS # 0.2 10^3/uL (0.0-0.5); EOS % 4.8 % (0.0-3.0); HEMATOCRIT 36.4 % (36.0-47.0); HEMOGLOBIN 11.7 g/dl (12.0-15.5); LYMPH # 1.4 10^3/uL (1.5-5.0); LYMPH % 40.2 % (24.0-44.0); MEAN CORPUSCULAR HEMOGLOBIN 29.5 pg (27.0-33.0); MEAN CORPUSCULAR HGB CONC 32.1 g/dl (32.0-36.5); MEAN CORPUSCULAR VOLUME 91.9 fl (80.0-96.0); MONO # 0.3 10^3/uL (0.0-0.8); MONO % 8.9 % (2.0-8.0); NEUTROPHILS # 1.5 10^3/uL (1.5-8.5); NEUTROPHILS % 44.6 % (36.0-66.0); PLATELET COUNT, AUTOMATED 177 10^3/uL (150-450); RED BLOOD COUNT 3.96 10^6/uL (4.00-5.40); WHITE BLOOD COUNT 3.4 10^3/uL (4.0-10.0)
[2021-11-26 09:01] LABS: ALBUMIN 3.8 GM/DL (3.2-5.2); ALT/SGPT 19 U/L (12-78); BILIRUBIN,TOTAL 0.8 MG/DL (0.2-1.0); BLOOD UREA NITROGEN 21 MG/DL (7-18); CALCIUM LEVEL 9.9 MG/DL (8.5-10.1); CARBON DIOXIDE LEVEL 30 MEQ/L (21-32); CHLORIDE LEVEL 103 MEQ/L (98-107); CREATININE FOR GFR 0.85 MG/DL (0.55-1.30); FERRITIN 169 NG/ML (8-252); GLOMERULAR FILTRATION RATE > 60.0 (>60); GLUCOSE, FASTING 86 MG/DL (70-100); IRON (FE) 51 UG/DL (50-170); MAGNESIUM LEVEL 1.5 MG/DL (1.8-2.4); PHOSPHORUS LEVEL 4.2 MG/DL (2.5-4.9); POTASSIUM SERUM 4.5 MEQ/L (3.5-5.1); SODIUM LEVEL 138 MEQ/L (136-145); TOTAL IRON BINDING CAPACITY 283 UG/DL (250-450); TOTAL PROTEIN 8.9 GM/DL (6.4-8.2)
[2021-11-26 09:25] LABS: CA 125 12.5 U/ML (<30.2)
== END ==
LOC: M LAB 07:46
PROVIDERS: ATTEND Internal Medicine Hematology & Oncology
DX: C53.9 Malignant neoplasm of cervix uteri, unspecified (principal); C79.9 Secondary malignant neoplasm of unspecified site; G89.3 Neoplasm related pain (acute) (chronic)

== ENCOUNTER → 2021-12-03 | Outpatient (CLI) | payer OTHER ==
[2021-12-03 09:17] LABS: BASO # 0.1 10^3/uL (0.0-0.2); BASO % 1.5 % (0.0-1.0); EOS # 0.3 10^3/uL (0.0-0.5); HEMATOCRIT 35.5 % (36.0-47.0); HEMOGLOBIN 11.7 g/dl (12.0-15.5); LYMPH # 1.4 10^3/uL (1.5-5.0); LYMPH % 35.3 % (24.0-44.0); MEAN CORPUSCULAR HEMOGLOBIN 30.5 pg (27.0-33.0); MEAN CORPUSCULAR VOLUME 92.4 fl (80.0-96.0); MONO # 0.4 10^3/uL (0.0-0.8); MONO % 10.1 % (2.0-8.0); NEUTROPHILS # 1.7 10^3/uL (1.5-8.5); NEUTROPHILS % 44.8 % (36.0-66.0); PLATELET COUNT, AUTOMATED 249 10^3/uL (150-450); RED BLOOD COUNT 3.84 10^6/uL (4.00-5.40); WHITE BLOOD COUNT 3.9 10^3/uL (4.0-10.0)
[2021-12-03 09:53] LABS: ALT/SGPT 18 U/L (12-78); BILIRUBIN,TOTAL 0.9 MG/DL (0.2-1.0); BLOOD UREA NITROGEN 16 MG/DL (7-18); CARBON DIOXIDE LEVEL 30 MEQ/L (21-32); CHLORIDE LEVEL 103 MEQ/L (98-107); CREATININE FOR GFR 0.77 MG/DL (0.55-1.30); FERRITIN 155 NG/ML (8-252); GLOMERULAR FILTRATION RATE > 60.0 (>60); GLUCOSE, FASTING 80 MG/DL (70-100); IRON (FE) 43 UG/DL (50-170); MAGNESIUM LEVEL 1.8 MG/DL (1.8-2.4); PHOSPHORUS LEVEL 3.9 MG/DL (2.5-4.9); POTASSIUM SERUM 4.4 MEQ/L (3.5-5.1); SODIUM LEVEL 137 MEQ/L (136-145); THYROID STIMULATING HORMONE 0.116 uIU/ML (0.358-3.740); TOTAL IRON BINDING CAPACITY 287 UG/DL (250-450); TOTAL PROTEIN 8.9 GM/DL (6.4-8.2)
[2021-12-03 10:22] LABS: CA 125 13.8 U/ML (<30.2)
== END ==
LOC: M LAB 08:31
PROVIDERS: ATTEND Internal Medicine Hematology & Oncology
DX: C53.9 Malignant neoplasm of cervix uteri, unspecified (principal); C79.9 Secondary malignant neoplasm of unspecified site; G89.3 Neoplasm related pain (acute) (chronic)

== ENCOUNTER → 2021-12-10 | Outpatient (CLI) | payer OTHER ==
[2021-12-10 08:55] LABS: BASO # 0.1 10^3/uL (0.0-0.2); BASO % 1.5 % (0.0-1.0); EOS # 0.2 10^3/uL (0.0-0.5); EOS % 5.9 % (0.0-3.0); HEMATOCRIT 38.2 % (36.0-47.0); HEMOGLOBIN 12.5 g/dl (12.0-15.5); LYMPH # 1.5 10^3/uL (1.5-5.0); LYMPH % 37.9 % (24.0-44.0); MEAN CORPUSCULAR HGB CONC 32.7 g/dl (32.0-36.5); MEAN CORPUSCULAR VOLUME 91.8 fl (80.0-96.0); MONO # 0.4 10^3/uL (0.0-0.8); MONO % 10.9 % (2.0-8.0); NEUTROPHILS # 1.7 10^3/uL (1.5-8.5); NEUTROPHILS % 43.8 % (36.0-66.0); PLATELET COUNT, AUTOMATED 204 10^3/uL (150-450); RED BLOOD COUNT 4.16 10^6/uL (4.00-5.40); WHITE BLOOD COUNT 3.9 10^3/uL (4.0-10.0)
[2021-12-10 09:21] LABS: ALT/SGPT 18 U/L (12-78); BLOOD UREA NITROGEN 21 MG/DL (7-18); CARBON DIOXIDE LEVEL 31 MEQ/L (21-32); CHLORIDE LEVEL 103 MEQ/L (98-107); CREATININE FOR GFR 0.87 MG/DL (0.55-1.30); GLOMERULAR FILTRATION RATE > 60.0 (>60); GLUCOSE, FASTING 85 MG/DL (70-100); MAGNESIUM LEVEL 1.6 MG/DL (1.8-2.4); PHOSPHORUS LEVEL 3.7 MG/DL (2.5-4.9); POTASSIUM SERUM 4.1 MEQ/L (3.5-5.1); SODIUM LEVEL 140 MEQ/L (136-145); TOTAL PROTEIN 9.1 GM/DL (6.4-8.2)
== END ==
LOC: M LAB 07:55
PROVIDERS: ATTEND Internal Medicine Hematology & Oncology
DX: C53.9 Malignant neoplasm of cervix uteri, unspecified (principal); C79.9 Secondary malignant neoplasm of unspecified site; G89.3 Neoplasm related pain (acute) (chronic); Z85.41 Personal history of malignant neoplasm of cervix uteri

== ENCOUNTER → 2021-12-29 | Outpatient (CLI) | payer OTHER ==
[2021-12-29 08:48] LABS: BASO # 0.1 10^3/uL (0.0-0.2); BASO % 1.4 % (0.0-1.0); EOS # 0.3 10^3/uL (0.0-0.5); EOS % 7.5 % (0.0-3.0); HEMATOCRIT 40.6 % (36.0-47.0); HEMOGLOBIN 12.9 g/dl (12.0-15.5); LYMPH # 1.4 10^3/uL (1.5-5.0); LYMPH % 31.9 % (24.0-44.0); MEAN CORPUSCULAR HEMOGLOBIN 28.5 pg (27.0-33.0); MEAN CORPUSCULAR HGB CONC 31.8 g/dl (32.0-36.5); MEAN CORPUSCULAR VOLUME 89.6 fl (80.0-96.0); MONO # 0.5 10^3/uL (0.0-0.8); MONO % 10.3 % (2.0-8.0); NEUTROPHILS # 2.1 10^3/uL (1.5-8.5); NEUTROPHILS % 48.2 % (36.0-66.0); PLATELET COUNT, AUTOMATED 212 10^3/uL (150-450); RED BLOOD COUNT 4.53 10^6/uL (4.00-5.40); WHITE BLOOD COUNT 4.4 10^3/uL (4.0-10.0)
[2021-12-29 09:09] LABS: ALBUMIN 3.9 GM/DL (3.2-5.2); ALT/SGPT 22 U/L (12-78); BILIRUBIN,TOTAL 1.5 MG/DL (0.2-1.0); BLOOD UREA NITROGEN 18 MG/DL (7-18); CALCIUM LEVEL 12.3 MG/DL (8.5-10.1); CARBON DIOXIDE LEVEL 30 MEQ/L (21-32); CHLORIDE LEVEL 101 MEQ/L (98-107); CREATININE FOR GFR 0.89 MG/DL (0.55-1.30); FERRITIN 141 NG/ML (8-252); GLOMERULAR FILTRATION RATE > 60.0 (>60); GLUCOSE, FASTING 85 MG/DL (70-100); IRON (FE) 53 UG/DL (50-170); PERCENT SATURATION 18.4 % (13.2-45.0); POTASSIUM SERUM 4.4 MEQ/L (3.5-5.1); SODIUM LEVEL 137 MEQ/L (136-145); TOTAL IRON BINDING CAPACITY 288 UG/DL (250-450); TOTAL PROTEIN 9.1 GM/DL (6.4-8.2)
[2021-12-29 13:29] LABS: CA 125 36.7 U/ML (<30.2)
== END ==
LOC: M LAB 07:46
PROVIDERS: ATTEND Internal Medicine Hematology & Oncology
DX: D64.9 Anemia, unspecified (principal)